=== PATIENT | female | born 1980 | race Hispanic/Latino ===

== ENCOUNTER 2016-09-05 16:16 | Emergency (ER) | payer OTHER ==
[~2016-09-05] VITALS: Ht 165.1 cm; Wt 79.8 kg
[~2016-09-05 16:16] MED LIST: BENTYL20 MG PO; FLEXERIL10 MG PO; IBU800 MG PO; MOBIC 15MG15 MG PO; MOTRIN 600 MG600 MG PO; PERCOCET 325 MG1 TA2 PO; PROAIR HFA8.5 GM INH; VICODIN 300 MG-1 TAB PO; ZOFRAN ODT4 M1 SL; ZOFRAN ODT4 MG PO
--- NOTE | 2016-09-05 17:12 | ED INFLUENZA/URI COMPLAINT ---
History of Present Illness General Chief Complaint: Upper Respiratory Sx/Fever Stated Complaint: FEVER,CONGESTION,COUGH,BODY ACHES Source: patient Exam Limitations: no limitations Vital Signs & Intake/Output Vital Signs & Intake/Output Vital Signs Date Time Temp Pulse Resp B/P Pulse O2 O2 Flow FiO2 Ox Delivery Rate 09/05 1755 98.1 88 18 120/68 100 Room Air 09/05 1644 Room Air 09/05 1619 98.1 94 16 114/72 98 Room Air ED Intake and Output 09/06 0000 09/05 1200 Intake Total Output Total Balance Patient 176 lb Weight Allergies Coded Allergies: shellfish derived (Severe, ANAPHYLAXIS 08/12/16) Reconcile Medications Albuterol Sulfate (Albuterol Sulfate Hfa) 90 MCG HFA.AER.AD 2 PUFF INH Q4-6 PRN PRN ASTHMA (Reported) 90 MCG PER PUFF Amoxicillin 500 MG TABLET 1 TAB PO TID SINUSITIS Benzonatate (Tessalon Perle) 100 MG CAPSULE 1 CAP PO TID COUGH Dicyclomine Hydrochloride (Bentyl) 20 MG TAB 1 TAB PO Q8P PRN SPASMS Meloxicam (Mobic 15MG) 15 MG TAB 1 TAB PO DAILY PRN PAIN/INFLAMMATION Mometasone Furoate (Nasonex) 50 MCG SPRAY.PUMP 2 SPRAY NASB DAILY CONGESTION Ondansetron (Zofran Odt) 4 MG ODT 1 TAB PO Q6P PRN NAUSEA Ondansetron (Zofran Odt) 4 MG TAB.RAPDIS 1 TAB SL TID PRN nasuea Triage Note: PT STATES SHE HAS HAD FEVER,CONGESTION,COUGH AND BODY ACHES SINCE YESTERDAY Triage Nurses Notes Reviewed? yes Onset: Gradual Duration: day(s): (2) Timing: recent history Severity: moderate Severity Numbers: 7 Prior Episodes/Possible Cause: occassional episodes No Modifying Factors: none Associated Symptoms: cough : No Patient currently breastfeeds: No HPI: Patient is a 36-year-old female presenting to the emergency department chief complaint body aches, malaise tactile fevers and chills of been going on for 2 days. She worse everyone at her workplace is sick with upper respiratory symptoms and flu. She did not get her flu vaccine this year. She's been taking Motrin and Tylenol with little relief. She also reports sinus congestion lying on for 1-2 weeks with pain. Denies nausea or vomiting or abdominal pain. No urinary symptoms. Denies chance of . (CHAVO LUTZ) Past History Travel History Traveled to [place] past 21 day No Medical History Any Pertinent Medical History? 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 No (CHAVO LUTZ) Review of Systems Review of Systems Constitutional: Reports: see HPI, chills, fever, malaise. Comments Review of systems: See HPI, All other systems negative. Constitutional, no weight loss HEENT: No visual changes Cardiovascular: No chest pain ,palpitation Skin, no jaundice no rashes Respiratory: No dyspnea sputum or hemoptysis GI: no vomiting : No dysuria No hematuria Muscle skeletal: no back pain, no neck pain, Neurologic: No numbness no confusion Psych: No stress anxiety Immunology: No splenectomy or history of AIDS (CHAVO LUTZ) Physical Exam Physical Exam General Appearance: well developed/nourished, no apparent distress, alert, awake , comfortable Ears, Nose, Throat: pharyngeal erythema Comments: Well-developed well-nourished person in no acute distress HEENT:. Pupils equally round and reactive to light and accommodation. Nose is atraumatic. External auditory canal and Tympanic membranes clear. Pharynx is moderately erythematous, no exudate, clearing secretions without difficulty.. No swelling or edema. Tender to palpation over the maxillary sinuses bilaterally. Clear nasal discharge bilaterally. Neck: Supple, no lymphadenopathy, normal range of motion without pain or tenderness Cardiovascular: Regular rate and rhythms no murmurs rubs or gallops, normal JVP Respiratory: Chest nontender. No respiratory distress.breath sounds clear to auscultation bilaterally Extremity: No edema Neuro: Alert oriented x3 Skin: No appreciable rash on exposed skin, skin is warm and dry. Psych: Mood and affect is normal, memory and judgment is normal. Core Measures Severe Sepsis Present: No Septic Shock Present: No (CHAVO LUTZ) Progress Differential Diagnosis: influenza, pneumonia, pharyngitis, sinusitis Plan of Care: Orders Procedure Date/time Status RAPID VIRAL INFLUENZA A 09/05 165 Complete Initial ED EKG: none (CHAVO LUTZ) Departure Departure Time of Disposition: 1728 Disposition: HOME OR SELF CARE Condition: Stable Clinical Impression Primary Impression: Sinusitis Qualifiers: Sinusitis location: maxillary Chronicity: acute Recurrence: non- recurrent Qualified Code: J01.00 - Acute maxillary sinusitis, unspecified Referrals: MAX SANTA (PCP/Family) Additional Instructions: Follow-up with your primary care physician, make appointment. Take amoxicillin as prescribed. Use Nasonex as directed. Increase fluids. Take Tessalon Perles as prescribed for cough. Departure Forms: Customer Survey General Discharge Information Prescriptions: Current Visit Scripts Amoxicillin 1 TAB PO TID #30 TAB Benzonatate (Tessalon Perle) 1 CAP PO TID #30 CAP Mometasone Furoate (Nasonex) 2 SPRAY NASB DAILY #1 INHAL (CHAVO LUTZ) PA/WASTE/MATERIALS EXCHANGE SPECIALIST Co-Sign Statement Statement: ED Attending supervision documentation- [] I saw and evaluated the patient. I have also reviewed all the pertinent lab results and diagnostic results. I agree with the findings and the plan of care as documented in the PA's/WASTE/MATERIALS EXCHANGE SPECIALIST's documentation. [X] I have reviewed the ED Record and agree with the PA's/WASTE/MATERIALS EXCHANGE SPECIALIST's documentation. [] Additions or exceptions (if any) to the PAs/WASTE/MATERIALS EXCHANGE SPECIALIST's note and plan are summarized below: [] (MARLIN LOMAX,JAGJIT)
[2016-09-05] MEDS ORDERED: TESSALON PERLE100 M1 PO (17:31)
[2016-09-05] MEDS ORDERED: NASONEX17 GM NASB (17:31)
[2016-09-05] MEDS ORDERED: AMOXICILLIN500 M3 PO (17:31)
[2016-09-05 17:55] VITALS: BP 120/68
== END 2016-09-05 17:55 ==
LOC: ERH 16:16
DX: J32.9 Chronic sinusitis, unspecified (principal); F17.210 Nicotine dependence, cigarettes, uncomplicated
CPT/HCPCS: 87804; 87804-59

== ENCOUNTER 2017-02-06 13:00 | Emergency (ER) | payer OTHER ==
[~2017-02-06] VITALS: Ht 165.1 cm; Wt 77.1 kg
[~2017-02-06 13:00] MED LIST changes: +AMOXICILLIN500 M3 PO; +NASONEX17 GM NASB; +TESSALON PERLE100 M1 PO
--- NOTE | 2017-02-06 13:26 | ED UPPER/LOWER EXTREMITY COMPL ---
History of Present Illness General Chief Complaint: Lower Extremity Problems Stated Complaint: UNABLE TO PUT WEIGHT ON R LEG Source: patient, old records Exam Limitations: no limitations Vital Signs & Intake/Output Vital Signs & Intake/Output ED Intake and Output 02/07 0000 02/06 1200 Intake Total 10 Output Total Balance 10 Intake, IV 10 Patient 170 lb Weight Weight Reported by Patient Measurement Method Allergies Coded Allergies: shellfish derived (Severe, ANAPHYLAXIS 08/12/16) Triage Note: PT TO ED FOR R SIDED LEG PAIN X1 MONTH , HAS BEEN SEEN MULTIPLE TIMES OUTPATIENT AT [facility]. "NOTHING IS HELPING IM SHAKING FROM PAIN" PT STATES SHE HAS CHRONIC BACK PAIN AND "THEY THINK IM GETTING LEG PAIN FROM MY BACK INJURY BUT ITS JUST SO BAD". HAS BEEN SEEN AT [facility], [facility]. HAS F/U APPT WITH [facility] NEXT WEEK Triage Nurses Notes Reviewed? yes Onset: Abrupt Duration: week(s): Timing: remote history Severity: severe Pain/Injury Location: Right: Leg, Knee, Thigh. : No Patient currently breastfeeds: No HPI: 36F with asthma hx and herniated disc and arthritis x 10 years presents with worsening back and right leg pain x 3 weeks. Pain in her right calf and thigh is described as severe and constant, worse with movement. Her back pain is described as aching and less severe than her leg pain. She states that 2 weeks ago her right leg gave out on her causing her to fall onto her knees. She also states she feels paresthesias on her right side especially on her right lateral foot. Pain causes her to walk with a limp, she cannot put her full weight on her right side. She was given a prednisone taper, tramadol, and meloxicam 2 weeks ago from her PCP which helped her symptoms slightly however did not take away her pain. She has tried heat, elevation, massage, and PT with no improvement in her symptoms. She denies fevers, chills, dypnea, chest pain, loss of control of bowel movements, numbness. (AMANDA LOTT) Reconcile Medications Albuterol Sulfate (Proair Hfa) 90 MCG HFA.AER.AD 2 PUF INH Q4-6 PRN PRN ASTHMA (Reported) Cyclobenzaprine HCl 5 MG TABLET 1 TAB PO TIDPRN PRN pain Oxycodone HCl/Acetaminophen (Percocet 5-325 MG Tablet) 5 MG-325 MG TABLET 1 TAB PO BID PRN pain (MARLIN LOMAX,JAGJIT) Past History Travel History Traveled to [place] past 21 day No Medical History Any Pertinent Medical History? 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 No (AMANDA LOTT) Review of Systems Review of Systems Constitutional: Reports: see HPI. All Other Systems: Reviewed and Negative Comments Review of systems: See HPI, All other systems negative. Constitutional, no chills no fever, no malaise +weight loss due to loss of appetite HEENT: No visual changes no sore throat no congestion Cardiovascular: No chest pain , no palpitation Skin: no rashes, no change in skin Respiratory: No dyspnea +cough no sputum no hemoptysis GI: No nausea no vomiting, no diarrhea, no bloating/constipation : No dysuria No hematuria, no frequency, no discharge Muscle skeletal: +right knee and leg pain, no joint swelling, +low back pain, no neck pain, Neurologic: No numbness no confusion, no headache +paresthesias Psych: No stress no depression,. Heme/endocrine: No bruising no bleeding Immunology: No lymphadenopathy (AMANDA LOTT) Physical Exam Physical Exam General Appearance: well developed/nourished, no apparent distress, alert Comments: Well-developed well-nourished patient in no apparent distress. HEENT: Atraumatic, extraocular motion intact Neck: Supple, FROM Back: FROM, tenderness over lumbar and sacral spine Cardiovascular: Regular rate and rhythms no murmurs rubs or gallops, Respiratory: Chest nontender.There were no bony deformities, no asymmetry. No respiratory distress. Patient speaking in full complete sentences. Breath sounds clear to auscultation bilaterally: NO W/R/R Extremities: full range of motion, tenderness over right lateral thigh, right lateral knee, no edema Neuro: awake, alert, and oriented to person, place and time. There were no obvious focal neurologic abnormalities. Gait abnormal with limp due to pain. Sensation diminished on right lateral foot compared to left Skin: Warm & dry;No appreciable rash on exposed skin Psych: Mood affect normal, normal memory normal judgment. (LIANG MANCUSO,AMANDA) Progress Differential Diagnosis: compartment syndrome, contusion, dislocation, DVT, fracture, sprain Diagnostic Imaging: Viewed by Me: Radiology Read. Discussed w/RAD: Radiology Read. Radiology Impression: PATIENT: KEITH BURR PRESENT AGE: 36 PATIENT ACCOUNT NO: [id number] : 79 LOCATION: [facility] ORDERING PHYSICIAN: AMANDA MANCUSO SERVICE DATE: 02/06/17-1401 EXAM TYPE: RAD - XRY- AP PELVIS; XRY-KNEE COMPLETE RIGHT EXAMINATION: XR PELVIS, AND KNEE RIGHT. CLINICAL INFORMATION: Chronic lower back pain, right knee pain. COMPARISON: None TECHNIQUE: AP view of the pelvis. 4 views of the knee. FINDINGS: Pelvis: Bone mineral density is maintained without evidence of fracture or dislocation. No focal osseous lesions are seen. Joint space is maintained without productive or erosive changes. Multiple small subcentimeter rounded pelvic calcifications are consistent with phleboliths. There is lateral overhanging of the acetabular roofs which can predispose to femoral acetabular impingement. There are mild degenerative changes at the lumbosacral junction, left side greater than right. A portion of the right lobe of the liver appears to extend to the raising the question of hepatomegaly versus a prominent Jann's lobe. Clinical correlation and follow-up ultrasound imaging could be performed. Knee: Bone mineral density is maintained without evidence of fracture or dislocation. No focal osseous lesions are seen. Joint space is maintained without productive or erosive changes. There is no joint effusion. IMPRESSION: No fracture or dislocation. Findings as noted above. DICTATED BY: ABIOLA BADILLO MD DATE/TIME DICTATED:1425 CONTACT CENTER SPECIALIST:ASHLEY DATE/TIME TRANSCRIBED:02/06/171425 CONFIDENTIAL, DO NOT COPY WITHOUT APPROPRIATE AUTHORIZATION. <Electronically signed in Other Vendor System> SIGNED BY: ABIOLA BADILLO MD 02/06/17 1434 , PATIENT: KEITH BURR PRESENT AGE: 36 PATIENT ACCOUNT NO: [id number] : 79 LOCATION: [facility] ORDERING PHYSICIAN: AMANDA MANCUSO SERVICE DATE: 02/06/17-1401 EXAM TYPE: RAD - XRY-AP PELVIS; XRY-KNEE COMPLETE RIGHT EXAMINATION: XR PELVIS, AND KNEE RIGHT. CLINICAL INFORMATION: Chronic lower back pain, right knee pain. COMPARISON: None TECHNIQUE: AP view of the pelvis. 4 views of the knee. FINDINGS: Pelvis: Bone mineral density is maintained without evidence of fracture or dislocation. No focal osseous lesions are seen. Joint space is maintained without productive or erosive changes. Multiple small subcentimeter rounded pelvic calcifications are consistent with phleboliths. There is lateral overhanging of the acetabular roofs which can predispose to femoral acetabular impingement. There are mild degenerative changes at the lumbosacral junction, left side greater than right. A portion of the right lobe of the liver appears to extend to the raising the question of hepatomegaly versus a prominent Jann's lobe. Clinical correlation and follow- up ultrasound imaging could be performed. Knee: Bone mineral density is maintained without evidence of fracture or dislocation. No focal osseous lesions are seen. Joint space is maintained without productive or erosive changes. There is no joint effusion. IMPRESSION: No fracture or dislocation. Findings as noted above. DICTATED BY: ABIOLA BADILLO MD DATE/TIME DICTATED:02/06/171425 CONTACT CENTER SPECIALIST:ASHLEY DATE/TIME TRANSCRIBED:02/06/171425 CONFIDENTIAL, DO NOT COPY WITHOUT APPROPRIATE AUTHORIZATION. <Electronically signed in Other Vendor System> SIGNED BY: ABIOLA BADILLO MD 02/06/171433 (AMANDA LOTT) Plan of Care: Current Medications Sig/Candelario Start time Last Medication Dose Stop Time Status Admin Hydromorphone HCl 1 MG ONCE ONE 02/06 1500 UNVr (Dilaudid) 02/06 1501 Ketorolac 30 MG ONCE ONE 02/06 1500 UNVr Tromethamine 02/06 1501 (Toradol) Patient is uncomfortable due to her chronic and constant back and right leg pain. Pain is sharp and stabbing in nature and has been present for weeks. There was no leg swelling or skin changes present on exam. Suspicion for DVT is low given her clinical presentation. Likely nerve pain related to her previous lumbar disc herniations with possible nerve compression. Her knee and pelvis xrays were in normal limits, these findings were discussed with the patient. She was given a prescription of percocet for break through pain. She was instructed to keep her next appointment at [facility] for next week for further follow up of her chronic back pain. She will return with worsening symptoms or concerns. She is in agreement with the plan of care. (AMANDA LOTT) Departure Departure Time of Disposition: 1442 Disposition: HOME OR SELF CARE Condition: Stable Clinical Impression Primary Impression: Lumbar back pain with radiculopathy affecting right lower extremity Secondary Impressions: Degenerative disc disease, lumbar Referrals: GRACE CADENA DO, COLLEEN L (PCP/Family) Additional Instructions: Take percocet as prescribed as needed for back and leg pain. This is a narcotic, can be highly addictive. Do not drink alcohol or drive while taking this medication as it can cause drowsiness. flexeril as driected. follow up with pmd dr cadena. Keep your scheduled appointment with [facility] for next week to further assess your low back pain. Return here with worsening symptoms or concerns. Departure Forms: Customer Survey General Discharge Information Prescriptions: Current Visit Scripts Oxycodone HCl/Acetaminophen (Percocet 5-325 MG Tablet) 1 TAB PO BID PRN pain #10 TAB Cyclobenzaprine HCl 1 TAB PO TIDPRN PRN pain #12 TAB (AMANDA LOTT) PA/ACCOUNTING CONSULTANT Co-Sign Statement Statement: ED Attending supervision documentation- [] I saw and evaluated the patient. I have also reviewed all the pertinent lab results and diagnostic results. I agree with the findings and the plan of care as documented in the PA's/ACCOUNTING CONSULTANT's documentation. [X] I have reviewed the ED Record and agree with the PA's/ACCOUNTING CONSULTANT's documentation. [] Additions or exceptions (if any) to the PAs/ACCOUNTING CONSULTANT's note and plan are summarized below: [] (MARLIN LOMAX,JAGJIT)
--- NOTE | 2017-02-06 14:34 | RADIOLOGY REPORT ---
EXAMINATION: XR PELVIS, AND KNEE RIGHT. CLINICAL INFORMATION: Chronic lower back pain, right knee pain. COMPARISON: None TECHNIQUE: AP view of the pelvis. 4 views of the knee. FINDINGS: Pelvis: Bone mineral density is maintained without evidence of fracture or dislocation. No focal osseous lesions are seen. Joint space is maintained without productive or erosive changes. Multiple small subcentimeter rounded pelvic calcifications are consistent with phleboliths. There is lateral overhanging of the acetabular roofs which can predispose to femoral acetabular impingement. There are mild degenerative changes at the lumbosacral junction, left side greater than right. A portion of the right lobe of the liver appears to extend to the raising the question of hepatomegaly versus a prominent Jann's lobe. Clinical correlation and follow-up ultrasound imaging could be performed. Knee: Bone mineral density is maintained without evidence of fracture or dislocation. No focal osseous lesions are seen. Joint space is maintained without productive or erosive changes. There is no joint effusion. IMPRESSION: No fracture or dislocation. Findings as noted above.
[2017-02-06] MEDS ORDERED: CYCLOBENZAPRINE5 M2 PO (14:44)
[2017-02-06] MEDS ORDERED: PERCOCET 5-3251 EACH PO (14:44)
[2017-02-06 15:34] VITALS: BP 124/74
== END 2017-02-06 15:35 ==
LOC: ERH 13:00
DX: M51.16 Intervertebral disc disorders with radiculopathy, lumbar region (principal); M54.5 Low back pain
CPT/HCPCS: 72170; 73562-RT; 96374; 96375; J1885

== ENCOUNTER 2017-02-20 02:02 | Emergency (ER) | payer OTHER ==
[~2017-02-20] VITALS: Ht 165.1 cm; Wt 78.5 kg
[~2017-02-20 02:02] MED LIST changes: +CYCLOBENZAPRINE5 M2 PO; +DICLOFENAC SODI75 M2 PO; +NEURONTIN300 M1 PO; +PERCOCET 5-3251 EACH PO
--- NOTE | 2017-02-20 03:19 | ED UPPER/LOWER EXTREMITY COMPL ---
History of Present Illness General Chief Complaint: Lower Extremity Problems Stated Complaint: PT C/O RT LEG PAIN X'S 3 WKS "REALLY BAD NOW" Source: patient, old records Exam Limitations: clinical condition Vital Signs & Intake/Output Vital Signs & Intake/Output Vital Signs Date Time Temp Pulse Resp B/P B/P Pulse O2 O2 Flow FiO2 Mean Ox Delivery Rate 02/20 0315 98.3 88 18 93/68 95 Room Air Allergies Coded Allergies: shellfish derived (Severe, ANAPHYLAXIS 02/20/17) Reconcile Medications Albuterol Sulfate (Proair Hfa) 90 MCG HFA.AER.AD 2 PUF INH Q4-6 PRN PRN ASTHMA (Reported) Diclofenac Sodium 75 MG TABLET.DR 1 TAB PO BID PRN PAIN Gabapentin (Neurontin) 300 MG CAPSULE 1 CAP PO TID leg pain Oxycodone HCl/Acetaminophen (Percocet 5-325 MG Tablet) 5 MG-325 MG TABLET 1 TAB PO BID BREAKTHROUGH PAIN Triage Note: TRIAGE: PATIENT TO ER FROM HOME REPORTING "IN A LOT OF PAIN FROM BACK TO MY TOES ON R SIDE." PATIENT REPORTING "I'VE BEEN IN AND OUT OF THIS ER FOR THE PAST 3 WEEKS FOR THIS." PATIENT REPORTS "NOTHING HELPS, WHAT THEY GAVE ME LAST TIME ISN'T HELPING. TODAY IS WORSE THAN ALL THE REST, IT'S MAKING ME SHAKE." DENIES ANY INJURIES. Triage Nurses Notes Reviewed? yes Onset: Gradual Duration: worse persistent since (few days), SEVERAL MONTHS Timing: recent history Severity: moderate, severe Pain/Injury Location: Right: Leg. Modifying Factors: Worsens With: movement. : No Patient currently breastfeeds: No HPI: This is a 36-year-old female presents to the ER with chief complaint of moderate to severe right buttock pain radiating to the right leg and ankle. She's been suffering for the same pain for the past several weeks. She is due to have an outpatient MRI by her doctor which is waiting approval by insurance. She was seen here in the ER a few days ago given a anti-inflammatory muscle relaxant. She states the pain is much worse. She describes this as 10/10, severe and sharp. Past History Travel History Traveled to [place] past 21 day No Medical History Any Pertinent Medical History? see below for history Neurological: NONE EENT: NONE Cardiovascular: NONE Respiratory: asthma Gastrointestinal: NONE Hepatic: NONE Renal: NONE Musculoskeletal: NONE Psychiatric: NONE Endocrine: NONE Blood Disorders: NONE Cancer(s): NONE ANIMAL ECOLOGIST/Reproductive: NONE History of MRSA: No History of VRE: No History of CDIFF: No Tetanus Vaccine: 01/06/14 Surgical History Surgical History: Psychosocial History What is your primary language German Tobacco Use: Refused to answer Family History Family History, If Any: FATHER FH: diabetes mellitus GRAND MOTHER FH: diabetes mellitus Hx Contributory? No Review of Systems Review of Systems Constitutional: Denies: chills, fever. EENTM: Reports: no symptoms. Respiratory: Denies: short of breath. Cardiovascular: Denies: chest pain. Gastrointestinal/Abdominal: Denies: abdominal pain. Genitourinary: Reports: no symptoms. Musculoskeletal: Reports: back pain, muscle pain, muscle stiffness. Skin: Reports: no symptoms. Neurological/Psychological: Reports: anxiety, numbness. Denies: weakness. Hematologic/Endocrine: Denies: bruising, bleeding, polyuria, polydipsia. Immunological: Reports: no symptoms. All Other Systems: Reviewed and Negative Physical Exam Physical Exam General Appearance: well developed/nourished, mild distress Head: atraumatic Eyes: Bilateral: PERRL, EOMI. Ears, Nose, Throat: normal pharynx, normal ENT inspection, hearing grossly normal Neck: normal inspection, supple Cardiovascular/Respiratory: regular rate/rhythm Back: normal inspection Leg Left: normal range of motion, normal inspection Leg Right: normal range of motion, normal inspection Hip Left: normal range of motion, normal inspection Hip Right: normal range of motion, normal inspection Knee Left: normal range of motion, normal inspection Knee Right: normal range of motion, normal inspection Foot Left: normal inspection, normal range of motion Foot Right: normal inspection, normal range of motion Neurologic/Tendon: normal sensation, normal motor functions, normal tendon functions Skin: intact, normal color, warm/dry Lymphatic: no anterior cervical oli Comments: POSITIVE RIGHT STRAIGHT LEG RAISE Progress Differential Diagnosis: SCIATICA, RADICULOPATHY, CORD COMPRESSION, HERNIATED DISC Plan of Care: CT IMAGING, PAIN CONTROL NEURO EXAMINATION INTACT Diagnostic Imaging: Viewed by Me: CT Scan. Discussed w/RAD: CT Scan. Radiology Impression: PATIENT: KEITH BURR PRESENT AGE: 36 PATIENT ACCOUNT NO: [id number] : 79 LOCATION: [facility] ORDERING PHYSICIAN: JAGJIT ISAAC MD SERVICE DATE: 02/20/17 EXAM TYPE: CAT - CT LUMB SPINE WO IV CONTRAST EXAMINATION: CT LUMBAR SPINE WITHOUT CONTRAST CLINICAL INFORMATION: Sciatica. Severe right leg pain and numbness. COMPARISON: CT lumbar spine 06/23/2014. Dictated report only. Images not available for review. TECHNIQUE: Axial images obtained through lumbar spine. Coronal and sagittal reformatted images performed at CT scanner DLP: 712.26 mGy-cm FINDINGS: Lumbar vertebrae have normal height and alignment. No fracture bone destruction. There is mild disc height narrowing at L3-L4, L4-L5 and L5-S1. No paraspinal soft tissue abnormality. The kidneys are normal. No stone or hydronephrosis. SPINAL LEVELS: T12-L1: Normal. L1-L2: Normal. L2-L3: Normal. L3-L4: Mild disc height narrowing. No focal disc protrusion. No central canal stenosis. Neural foramina open. Facet joints are normal. L4-L5: Mild circumferential bulge of the annular fibers of the disc without focal disc protrusion. Disc height is narrowed. Mild central canal stenosis. Neural foramina are open. L5-S1: Lumbar disc height is narrowed. There is a right paracentral disc protrusion. This impresses upon the thecal sac. Also likely impresses upon the right S1 nerve root lateral recess is narrowed. There is spurs at the posterior endplates of the L5 and S1 vertebrae on the right side associated with the disc protrusion. This disc protrusion was noted on the CAT scan study of 06/23/2014. IMPRESSION: 1. Right paracentral disc protrusion at L5-S1. This can be further assessed with MRI. This was described also on the CAT scan of 06/23/2014. 2. Mild degenerative change at the L4-L5 disc with mild central canal stenosis. DICTATED BY: RICKY BARTON MD DATE/TIME DICTATED:02/20/17418 CAR UNLOADER HELPER:ASHLEY DATE/TIME TRANSCRIBED:02/20/17418 CONFIDENTIAL, DO NOT COPY WITHOUT APPROPRIATE AUTHORIZATION. <Electronically signed in Other Vendor System> SIGNED BY: RICKY BARTON MD 02/20/17 043 Departure Departure Disposition: HOME OR SELF CARE Condition: Stable Clinical Impression Primary Impression: Sciatica, right side Referrals: MAX SANTA (PCP/Family) Additional Instructions: CONTINUE THE DICLOFENAC AND GABAPENTIN. TAKE PERCOCET FOR BREAKTHROUGH PAIN. FOLLOW UP WITH OUTPATIENT MRI TESTING BY DR SANTA. RETURN FOR ANY WEAKNESS OF THE LEG, DIFFICULTY WITH BOWEL OR BLADDER FUNCTIONS. Departure Forms: Customer Survey General Discharge Information Prescriptions: Current Visit Scripts Oxycodone HCl/Acetaminophen (Percocet 5-325 MG Tablet) 1 TAB PO BID #12 TAB
--- NOTE | 2017-02-20 04:31 | CT SCAN REPORT ---
EXAMINATION: CT LUMBAR SPINE WITHOUT CONTRAST CLINICAL INFORMATION: Sciatica. Severe right leg pain and numbness. COMPARISON: CT lumbar spine 06/23/2014. Dictated report only. Images not available for review. TECHNIQUE: Axial images obtained through lumbar spine. Coronal and sagittal reformatted images performed at CT scanner DLP: 712.26 mGy-cm FINDINGS: Lumbar vertebrae have normal height and alignment. No fracture bone destruction. There is mild disc height narrowing at L3-L4, L4-L5 and L5-S1. No paraspinal soft tissue abnormality. The kidneys are normal. No stone or hydronephrosis. SPINAL LEVELS: T12-L1: Normal. L1-L2: Normal. L2-L3: Normal. L3-L4: Mild disc height narrowing. No focal disc protrusion. No central canal stenosis. Neural foramina open. Facet joints are normal. L4-L5: Mild circumferential bulge of the annular fibers of the disc without focal disc protrusion. Disc height is narrowed. Mild central canal stenosis. Neural foramina are open. L5-S1: Lumbar disc height is narrowed. There is a right paracentral disc protrusion. This impresses upon the thecal sac. Also likely impresses upon the right S1 nerve root lateral recess is narrowed. There is spurs at the posterior endplates of the L5 and S1 vertebrae on the right side associated with the disc protrusion. This disc protrusion was noted on the CAT scan study of 06/23/2014. IMPRESSION: 1. Right paracentral disc protrusion at L5-S1. This can be further assessed with MRI. This was described also on the CAT scan of 06/23/2014. 2. Mild degenerative change at the L4-L5 disc with mild central canal stenosis.
[2017-02-20] MEDS ORDERED: PERCOCET 5-3251 EACH PO (04:43)
[2017-02-20 06:40] VITALS: BP 104/97
== END 2017-02-20 06:42 ==
LOC: ERH 02:02
DX: M54.41 Lumbago with sciatica, right side (principal)
CPT/HCPCS: 96374; 96375; J1100; J1885; J3360

== ENCOUNTER 2018-05-06 16:09 | Emergency (ER) | payer OTHER ==
[~2018-05-06] VITALS: Ht 165.1 cm; Wt 88.0 kg
[2018-05-06 16:59] LABS: ABSOLUTE BASOPHIL COUNT 0 /CUMM (0.0-0.2); ABSOLUTE EOSINOPHIL COUNT 0.2 /CUMM (0.0-0.7); ABSOLUTE GRANULOCYTE CT 3.8 /CUMM (1.4-6.5); ABSOLUTE LYMPH COUNT 2.2 /CUMM (1.2-3.4); ABSOLUTE MONOCYTE COUNT 0.4 /CUMM (0.10-0.60); BASOPHIL % 0.4 % (0.0-2.0); EOSINOPHIL % 3.1 % (0-5); GRANULOCYTE % 57.3 % (42.2-75.2); HEMATOCRIT 42.1 % (37-47); MEAN CORPUSCULAR HGB 30.7 PG (27.0-31.0); MEAN CORPUSCULAR HGB CONC 33.2 G/DL (33.0-37.0); MEAN CORPUSCULAR VOLUME 92.5 FL (81.0-99.0); MEAN PLATELET VOLUME 9.1 FL (7.4-10.4); PLATELET COUNT 303 /CUMM (130-400); RED BLOOD CELL CT 4.55 /CUMM (4.20-5.40); WHITE BLOOD CELL COUNT 6.7 /CUMM (4.8-10.8)
--- NOTE | 2018-05-06 20:24 | CT SCAN REPORT ---
EXAMINATION: CT ABDOMEN AND PELVIS WITHOUT CONTRAST CLINICAL INFORMATION: Left lower quadrant pain. COMPARISON: 06/23/2014 CT scan. TECHNIQUE: Multidetector volumetric imaging was performed from the superior aspect of the liver through the pubic symphysis without contrast per request. Sagittal and coronal reformatted images were obtained on the technologist workstation. DLP: 581 mGy-cm. FINDINGS: LUNG BASES: The visualized lung bases are unremarkable. LIVER, GALLBLADDER, BILIARY TREE: The non-contrast liver is normal in size, shape, and attenuation. No focal hepatic lesion or biliary ductal dilatation is present. The gallbladder is partially contracted but otherwise unremarkable with no evidence of radiopaque gallstones, gallbladder wall thickening, or obvious pericholecystic inflammatory changes. PANCREAS: Unremarkable. SPLEEN: Unremarkable. ADRENAL GLANDS: Unremarkable. KIDNEYS AND URETERS: The kidneys are normal in size, shape, and attenuation. No hydronephrosis, hydroureter, or calculi seen. No perinephric stranding. BLADDER: Unremarkable. GASTROINTESTINAL TRACT: There are a few scattered colonic diverticula. I do not appreciate any colonic wall thickening. There is a focal region of subtle stranding to the pericolonic fat anterior to the distal descending colon seen best on axial image 53/90. The colonic wall in this location appears unremarkable. Etiology for this focal fat stranding is uncertain. This could represent an area of appendagitis epiploica, would clinically correlate for focal pain in this location. Normal-appearing appendix in the right lower quadrant. Visualized small bowel unremarkable. ABDOMINAL WALL: Tiny fat-containing umbilical hernia LYMPHOVASCULAR STRUCTURES: No lymphadenopathy. The aorta is unremarkable.. PELVIC VISCERA: Unremarkable. OSSEUS STRUCTURES: Degenerative changes at L5/S1. Patient appears to be status post laminectomy at L5 with low-attenuation fluid in this region likely representing postoperative sequela. IMPRESSION: There is a very subtle focal stranding to the anterior to the distal most ascending colon. The underlying colon itself appears unremarkable. This focal fat stranding could represent an area of focal appendagitis epiploica, would clinically correlate for focal pain in this location. Likely postoperative changes at L5.
--- NOTE | 2018-05-06 21:04 | ED GI/GU/ABDOMINAL COMPLAINT ---
History of Present Illness General Chief Complaint: Abdominal Pain/Flank Pain Stated Complaint: ABD PAIN Source: patient Exam Limitations: no limitations Vital Signs & Intake/Output Vital Signs & Intake/Output Vital Signs Date Time Temp Pulse Resp B/P B/P Pulse O2 O2 Flow FiO2 Mean Ox Delivery Rate 05/06 2106 97.9 68 16 118/77 100 Room Air 05/06 1612 98.1 83 15 141/96 98 Room Air Room Air ED Intake and Output 05/07 0000 05/06 1200 Intake Total 1000 Output Total Balance 1000 Intake, IV 1000 Intake, Oral 0 Patient 194 lb Weight Weight Reported by Patient Measurement Method Allergies Coded Allergies: shellfish derived (Severe, ANAPHYLAXIS 02/20/17) Reconcile Medications Albuterol Sulfate (Proair Hfa) 90 MCG HFA.AER.AD 2 PUF INH Q4-6 PRN PRN ASTHMA (Reported) Diclofenac Sodium 75 MG TABLET.DR 1 TAB PO BID PRN PAIN Gabapentin (Neurontin) 300 MG CAPSULE 1 CAP PO TID leg pain Oxycodone HCl/Acetaminophen (Percocet 5-325 MG Tablet) 5 MG-325 MG TABLET 1 TAB PO BID BREAKTHROUGH PAIN Tramadol HCl 50 MG TABLET 1-2 TAB PO BIDP PRN pain Triage Note: PT TO ED FOR L SIDED ABD PAIN SINCE YESTERDAY WORSE WITH PALPATION. Triage Nurses Notes Reviewed? yes ? n Is pt currently ? No Onset: Abrupt Duration: day(s): (2), constant Timing: recent history Location: left upper quadrant Radiation: back Activities at Onset: none HPI: 37-year-old female comes into the emergency room complaints of left upper abdominal pain that radiates to her left flank region. Denies any chest pain or shortness of breath. Pain is sharp. Continuous. Gone on since yesterday. Nothing seems to make it better or worse. She comes in for further evaluation. She denies any urinary symptoms. Denies any other associated symptoms. Past History Travel History Traveled to [place] past 21 day No Medical History Any Pertinent Medical History? 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 No Review of Systems Review of Systems Constitutional: Reports: no symptoms. EENTM: Reports: no symptoms. Respiratory: Reports: no symptoms. Cardiovascular: Reports: no symptoms. GI: Reports: see HPI. Genitourinary: Reports: no symptoms. Musculoskeletal: Reports: no symptoms. Skin: Reports: no symptoms. Neurological/Psychological: Reports: no symptoms. Hematologic/Endocrine: Reports: no symptoms. Immunologic/Allergic: Reports: no symptoms. All Other Systems: Reviewed and Negative Physical Exam Physical Exam General Appearance: well developed/nourished, no apparent distress, alert, awake Head: atraumatic, normal appearance Eyes: Bilateral: normal appearance. Ears, Nose, Throat, Mouth: hearing grossly normal, moist mucous membrane Neck: normal inspection Respiratory: no respiratory distress Gastrointestinal: soft, tenderness (luq) Back: normal inspection Extremities: normal range of motion Neurologic/Psych: awake, alert, oriented x 3, normal gait, normal mood/affect Skin: intact, normal color Core Measures ACS in differential dx? No Sepsis Present: No Sepsis Focused Exam Completed? No Progress Differential Diagnosis: bowel obstruction, diverticulitis, gastritis, kidney stone, PUD/GERD, perforated viscous, UTI/pyelo Plan of Care: Orders Procedure Date/time Status URINE 05/06 161 Complete URINALYSIS 05/06 161 Complete LIPASE 05/06 1613 Complete COMPREHENSIVE METABOLIC PANEL 05/06 1613 Complete CBC WITHOUT DIFFERENTIAL 05/06 1613 Complete Laboratory Tests 05/06/18 1628: Anion Gap 10, Estimated GFR > 60, BUN/Creatinine Ratio 20.0, Glucose 84, Calcium 9.7, Total Bilirubin 0.3, AST 19, ALT 21, Alkaline Phosphatase 81, Total Protein 7.4, Albumin 4.3, Globulin 3.1, Albumin/Globulin Ratio 1.4, Lipase 169, CBC w Diff NO MAN DIFF REQ, RBC 4.55, MCV 92.5, MCH 30.7, MCHC 33.2, RDW 14.0, MPV 9.1 , Gran % 57.3, Lymphocytes % 32.8, Monocytes % 6.4, Eosinophils % 3.1, Basophils % 0.4, Absolute Granulocytes 3.8, Absolute Lymphocytes 2.2, Absolute Monocytes 0.4, Absolute Eosinophils 0.2, Absolute Basophils 0, Urine Color YEL, Urine Clarity CLEAR, Urine pH 6.0, Ur Specific [place] 1.025, Urine Protein NEG, Urine Ketones NEG, Urine Nitrite NEG, Urine Bilirubin NEG, Urine Urobilinogen 0.2, Ur Leukocyte Esterase TRACE H, Ur Microscopic SEDIMENT EXAMINED, Urine RBC FEW H, Urine WBC 3-5 H, Ur Epithelial Cells MOD H, Urine Bacteria MOD H, Urine Hemoglobin MOD H, Urine Glucose NEG, Urine Test NEGATIVE Diagnostic Imaging: Viewed by Me: CT Scan. Discussed w/RAD: CT Scan. Radiology Impression: PATIENT: KEITH BURR PRESENT AGE: 37 PATIENT ACCOUNT NO: [id number] : 79 LOCATION: [facility] ORDERING PHYSICIAN: Daniel MANCUSO SERVICE DATE: 05/06/18 EXAM TYPE: CAT - CT ABD & PELVIS W/O IV CONTRAS EXAMINATION: CT ABDOMEN AND PELVIS WITHOUT CONTRAST CLINICAL INFORMATION: Left lower quadrant pain. COMPARISON: 06/23/2014 CT scan. TECHNIQUE: Multidetector volumetric imaging was performed from the superior aspect of the liver through the pubic symphysis without contrast per request. Sagittal and coronal reformatted images were obtained on the technologist workstation. DLP: 581 mGy-cm. FINDINGS: LUNG BASES: The visualized lung bases are unremarkable. LIVER, GALLBLADDER, BILIARY TREE: The non-contrast liver is normal in size, shape, and attenuation. No focal hepatic lesion or biliary ductal dilatation is present. The gallbladder is partially contracted but otherwise unremarkable with no evidence of radiopaque gallstones, gallbladder wall thickening, or obvious pericholecystic inflammatory changes. PANCREAS: Unremarkable. SPLEEN: Unremarkable. ADRENAL GLANDS: Unremarkable. KIDNEYS AND URETERS: The kidneys are normal in size, shape, and attenuation. No hydronephrosis, hydroureter, or calculi seen. No perinephric stranding. BLADDER: Unremarkable. GASTROINTESTINAL TRACT: There are a few scattered colonic diverticula. I do not appreciate any colonic wall thickening. There is a focal region of subtle stranding to the pericolonic fat anterior to the distal descending colon seen best on axial image 53/90. The colonic wall in this location appears unremarkable. Etiology for this focal fat stranding is uncertain. This could represent an area of appendagitis epiploica, would clinically correlate for focal pain in this location. Normal-appearing appendix in the right lower quadrant. Visualized small bowel unremarkable. ABDOMINAL WALL : Tiny fat-containing umbilical hernia LYMPHOVASCULAR STRUCTURES: No lymphadenopathy. The aorta is unremarkable.. PELVIC VISCERA: Unremarkable. OSSEUS STRUCTURES: Degenerative changes at L5/S1. Patient appears to be status post laminectomy at L5 with low-attenuation fluid in this region likely representing postoperative sequela. IMPRESSION: There is a very subtle focal stranding to the anterior to the distal most ascending colon. The underlying colon itself appears unremarkable. This focal fat stranding could represent an area of focal appendagitis epiploica, would clinically correlate for focal pain in this location. Likely postoperative changes at L5. DICTATED BY: Eladio Pitts MD DATE/TIME DICTATED:05/06/182014 MARKETING OPERATIONS SPECIALIST:ASHLEY DATE/ TIME TRANSCRIBED:05/06/182014 CONFIDENTIAL, DO NOT COPY WITHOUT APPROPRIATE AUTHORIZATION. <Electronically signed in Other Vendor System> SIGNED BY: Eladio Pitts MD 05/06/182023 Initial ED EKG: none Departure Departure Disposition: HOME OR SELF CARE Condition: Stable Clinical Impression Primary Impression: Abdominal pain Referrals: Neida Luong APRN (PCP/Family) Additional Instructions: Follow-up with cleaners. Return if any concerns worsening symptoms. Take tramadol for pain. Please go over all results of today's visit with your primary care doctor. Contact your primary care doctor to let them know you were here in the emergency room. There may be nonspecific findings which may not be related to your visit today here in the emergency room but may require further evaluation and chronic monitoring by your primary care doctor. If you had a laceration today the chance of foreign body always remains. You should follow-up with your primary care doctor for recheck in 3-5 days for a wound check. If you had an x-ray done there is a chance that a fracture could have been missed on initial read and you should follow-up with your primary care doctor for repeat x-rays if symptoms persist. If your blood pressure was elevated here in the emergency room please have rechecked by [facility] primary care doctor within the next 48. If you were prescribed a narcotic here in the emergency room or any type of controlled substances you're not allowed to drive while taking this medication or operate any type of heavy machinery. Narcotics can make you feel lightheaded dizziness nausea and can cause constipation. You may need to sheepskin pickler a stool softener. Thank you for choosing [facility] emergency room. Please return to the emergency room immediately if you have any other concerns worsening of symptoms. Departure Forms: Customer Survey General Discharge Information Prescriptions: Current Visit Scripts Tramadol HCl 1-2 TAB PO BIDP PRN pain #10 TAB Comments 05/07/2018 12:21:56 AM Patient feels significantly better after IV medication. Follow-up with cleaners or primary care doctor. Return if any other concerns worsening symptoms. Patient understands and agrees with plan of care.
[2018-05-06 21:06] VITALS: BP 118/77
[2018-05-06] MEDS ORDERED: TRAMADOL HCL50 M1 PO (21:51)
== END 2018-05-06 22:28 ==
LOC: ERH 16:09
PROVIDERS: Physician Assistant Medical
DX: R10.12 Left upper quadrant pain (principal); J45.909 Unspecified asthma, uncomplicated; F17.210 Nicotine dependence, cigarettes, uncomplicated
CPT/HCPCS: 74176; 81001; 81025; 96361; 96374; 96375; J1885